=== PATIENT | female | born 2005 | race Caucasian/White ===

== ENCOUNTER 2025-10-19 13:37 | Outpatient (AMB) | payer OTHER, SELFPAY ==
--- OUTSIDE RECORDS SUMMARY | 2024-11-08 14:27 | XMS_ITS | Encounter Summary ---
Author Organization [facility] Address [address] [place] [address] Care Team Providers Care Pearl Maker Name Role Phone Pcp, No Primary Care Provider Unavailabl e Encounter Details Date Type Department Care Team (Latest Contact Info) Description 11/08/2024 2:27 PM EST Hospital Encounter [facility] [address] [place] [address] Acute right ankle pain Social History Tobacco Use Types Packs/Day Years Used Date Smoking Tobacco: Never Assessed Comments Unknown Sex and Gender Information Value Date Recorded Sex Assigned at Not on file Legal Sex Female 6:43 PM EST Gender Identity Not on file Sexual Orientation Not on file documented as of this encounter Plan of Treatment Not on file documented as of this encounter Procedures Procedure Name Priority Date/Time Associated Diagnosis Comments XR ANKLE 3+ VIEWS-RIGHT STAT 11/08/2024 2:32 PM EST Acute right ankle pain documented in this encounter Results * XR Ankle 3+ views-Right (11/08/2024 2:32 PM EST) Anatomical Region Laterality Modality Ankle Right Computed Radiogr aphy 11/08/2024 2:34 PM EST Impressions 11/08/2024 2:36 PM EST No acute osseous injury identified. Narrative 11/08/2024 2:36 PM EST STUDY: XR ANKLE 3+ VIEWS-RIGHT INDICATION: inversion injury 1 week ago. hx of of injury to the same ankle in the past. r/o fx. tenderness medially. COMPARISON: No prior similar studies were available for comparison at this institution. TECHNIQUE: Frontal, lateral, and oblique views were obtained of the right ankle FINDINGS: No displaced fracture or dislocation is seen. No radiopaque foreign body is appreciated. Procedure Note Mindi Corbin MD - 11/08/2024 STUDY: XR ANKLE 3+ VIEWS-RIGHT INDICATION: inversion injury 1 week ago. hx of of injury to the same anklein the past. r/o fx. tenderness medially. [facility]: [facility] TECHNIQUE: Frontal, lateral, and oblique views were obtained of the rightankle FINDINGS: No displaced fracture or dislocation is seen. No radiopaque foreign bodyis appreciated. IMPRESSION: No acute osseous injury identified. Livia Adamson APRN IMG DIAGNOSTIC IMAGING OR DERABLES Final Result documented in this encounter Visit Diagnoses Diagnosis Acute right ankle pain documented in this encounter Care Teams Pearl Maker Relationship Specialty Start Date End Date Pcp, No PCP - General General Medicine 11/08/24 documented as of this encounter
[2025-10-19 13:48] VITALS: BP 108/70; PULSE 83; RESP 16; O2SAT 98; BMI 28.0
--- NOTE | 2025-10-19 13:48 | MHC.OFFVIS ---
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 She was referred to Neurology by her primary care provider for migraines and recent diagnosis of status migrainosus on 08/29/2025 for which she was seen in the emergency department. CT scan in the emergency room according to primary care office note was normal. According to the patient today, she began having severe migraines around the age of 16. She has been seeing pcp for her migraines in the past and was originally treated with rizatriptan as needed. She at that point was having severe but infrequent migraines. About 1 year ago her migraines became more frequent averaging about 2 per week and it began inturriptin her school life. The rizatriptan at that time was not as effective as it once had been and she was then switched to sumatriptan 25mg. She was on the sumatriptan for about 1 year but over the course of the past several months they have become even more freqent now averaging 4-5 migraines per week and more severe. In August she had a migraine for 2 weeks and went to the ER at which time she had her CT scan and revcieved a migraine cocktail which helped with relief that night but in about 48hrs she had return of her migraine. Finally about 1 week ago she started to have some relief. Over the course of the last 3 months she estimates about 16 migraine days per month with some lingering low-level headaches in addition to these days. When she has a migraine her pain is often starting to the occipital areas and ratiates to the temples and frontal areas. Her pain is bilateral and felt as as a throbbing, dull, sharp, and aching pain and can vary from headache to headache. She has nausea, dizziness, light sensitivity, and sound sensitivity with her migraines. She denies any visual auras. She has been on combined OCP since 2020. She is currently on propranolol 20am and 10pm for anxiety and a physiologic tremor. This has not helped her headaches that she is aware of. Headache characteristics: Time of onset:16 years old continuing to worsen Location:Occipital areas and radiates to the temples and frontal areas Positional component:No Character:Throbbing, dull, sharp, and aching pain and can vary from headache to headache Severity:Moderate to severe Duration:Nearly the entire day Frequency:4 days per week on average Acute aggravating factors:Stress and bright lights Acute relieving factors: Rest and relaxation Associated symptoms:Nausea, dizziness, light sensitivity, and sound sensitivity Aura:No Headache triggers:Stress Relation to menses:No Other related background information: Sleep: She reports that she sleeps well with some difficulty at times going to bed or staying asleep but overall normal. 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 No vision trouble Last dental visit: April 2025. She does clench/grind in sleep from time to time History of head injury: Concussion at age 4 with suzanna on scalp but no LOC Family planning considerations: No plans to become Past medication trials: Sumatriptan-no significant benefit Rizatriptan- no significant benefit Propranolol Riboflavin Topiramate (contraindicated with combined OCP) Prior workup: CT head 08/2025 at [facility]: [facility] Medical History (Updated 10/19/25 @ 14:55 by Herlinda Guillen CNP) Hyperprolactinemia HLD (hyperlipidemia) GERD (gastroesophageal reflux disease) Breakthrough bleeding Anxiety ADHD Migraine Review of Systems Const All systems reviewed & are unremarkable except as noted in HPI and below Physical Exam Vital Signs: Last Vital Signs Pulse 83 10/19/25 13:48 Resp 16 10/19/25 13:48 BP 108/70 10/19/25 13:48 Pulse Ox 98 10/19/25 13:48 Oxygen Delivery Method Room Air 10/19/25 13:48 BMI result Body Mass Index 28.0 Const General: cooperative, healthy appearing, comfortable and no acute distress Nutritional Appearance: well nourished Orientation/consciousness: patient oriented x3 Limitations: no limitations HEENT Head: Yes normal to inspection and Yes normocephalic Eyes General: appearance normal, both eyes and all related structures Visual Conway: normal visual conway by confrontation Alignment and Position: alignment normal Periorbital: periorbital findings normal Eyelids: Yes eyelids normal Conjunctivae: conjunctivae normal Sclerae: sclerae normal Direct Ophthalmoscopy: normal light reflex, no papilledema and fundi normal bilaterally Back/Spine/Pelvis Other: Bilateral lower trapezius trigger points Neuro General: patient oriented x3 Cranial nerves: Yes CN's II-XII intact bilaterally and Yes Facial sensation intact/muscles of mastication intact Cognition (Neuro): normal cognition Gait exam (Neuro): Normal gait present Motor exam (neuro): 5/5 motor strength present throughout and no tremor noted Sensory Exam: double simultaneous stimulation for sensation normal Romberg Test: Negative Pupils: Normal pupillary reactivity/response: bilateral Psych Appearance: grossly normal Mental Status: mental status grossly normal Speech and movement: Normal speech and movement present and Clear speech present Affect: normal affect Attitude: cooperative Thought process: Normal thought process present Thought content: Normal thought content present Insight: Good insight present (Psych) Judgement: Good judgement present (Psych) Assessment & Plan Assessment & Plan (1) Chronic migraine without aura without status migrainosus, not intractable: Code(s): G43.709 - Chronic migraine without aura, not intractable, without status migrainosus Category: Medical Plan Ashley is a 19-year-old female patient with a past medical history of ADHD, constipation, anxiety, abnormal menses, hyperlipidemia, hyperprolactinemia, and migraine headaches. Migraines are chronic occurring 16 days per month on average and becoming more severe. She is currently on propranolol for other reasons but not improving her headaches. She is not a good candidate for topiramate given concurrent use of control and she is not a good candidate for tricyclic antidepressants given use of fluoxetine. We discussed other options including anti CGRP agents. She would like to try a once monthly injectable. She does note some constipation and therefore we will avoid Aimovig. She also has a latex allergy and we will avoid Ajovy. I am recommending a trial of Emgality with 240 mg loading dose and 120 mg maintenance dose monthly. For her acute therapy, she has tried to triptan without benefit. I would like her to try Ubrelvy 100 mg as needed for acute therapy. I will see her back in clinic in 3 months or sooner if needed. -start a trial of Emgality 240 mg loading dose and 120 mg maintenance dosing -start a trial of Ubrelvy 100 mg as needed for acute therapy -can continue riboflavin (B2) 400 mg daily as she has been taking -follow up in 3 months or sooner if needed -future considerations include trial off of her combined OCP Coding Level of Care Code New Pt Level 4 (57713) Diagnoses Chronic migraine without aura without status migrainosus, not intractable G43.709
--- OUTSIDE RECORDS SUMMARY | 2025-10-19 16:43 | XMS_ITS | Clinical Summary ---
Author Organization [facility] Address [address] [place] [address] Care Team Providers Care Surgical Services Tech Name Role Phone Pcp, No Primary Care Provider Unavailabl e Allergies Active Allergy Reactions Criticality Noted Date Comments Penicillins Rash/Dermatitis Low 10/27/2014 Medications nortriptyline (PAMELOR) 25 MG capsule Take 25 mg by mouth nightly. Active amphetamine-dext roamphetamine (ADDERALL XR) 15 MG 24 hr capsule Take 15 mg by mouth every morning. Active propranolol (INDERAL) 40 MG tablet Take 40 mg by mouth 3 (three) times a day. Active montelukast (SINGULAIR) 10 MG tablet Take 10 mg by mouth nightly. Active Social History Tobacco Use Types Packs/Day Years Used Date Smoking Tobacco: Never Assessed Comments Unknown Sex and Gender Information Value Date Recorded Sex Assigned at Not on file Legal Sex Female 6:43 PM EST Gender Identity Not on file Sexual Orientation Not on file Last Filed Vital Signs Vital Sign Reading Time Taken Comments Blood Pressure 115/87 11/08/2024 2:07 PM EST Pulse 91 11/08/2024 2:07 PM EST Temperature 36.4 C (97.6 F) 11/08/2024 2:07 PM EST Respiratory Rate - - Oxygen Saturation 100% 11/08/2024 2:07 PM EST Inhaled Oxygen Concentration - - Weight - - Height - - Body Mass Index - - Plan of Treatment Health Maintenance Due Date Last Done Comments Hepatitis C Virus Screening 2004 HIV Screening 2017 HPV Vaccines (1 - 3-dose series) 2019 DTaP/Tdap/Td Vaccines (1 - Tdap) 2023 Hepatitis B Vaccines (1 of 3 - 19+ 3-dose series) 2023 Influenza Vaccine 06/24/2025 COVID-19 Vaccine (2023-2 5 season) 2025 Pneumococcal Vaccine: Pediat hussain (0-5 Years) and At-Risk Patients (6 to 49 Years) Aged Out No longer eligible b ased on patient's age to complete this topic Insurance [facility] Care Teams Surgical Services Tech Relationship Specialty Start Date End Date Pcp, No PCP - General General Medicine 11/08/24
--- OUTSIDE RECORDS SUMMARY | 2025-10-19 16:43 | XMS_ITS | Encounter Summary ---
Author Organization [facility] Address [address] [place] [address] Care Team Providers Care Health Evaluator Name Role Phone Pcp, No Primary Care Provider Unavailabl e Encounter Details Date Type Department Care Team (Late st Contact Info) Description 11/08/2024 Scanned Document [address] [place] [id number] Provider, Generic Social History Tobacco Use Types Packs/Day Years Used Date Smoking Tobacco: Never Assessed Comments Unknown Sex and Gender Information Value Date Recorded Sex Assigned at Not on file Legal Sex Female 6:43 PM EST Gender Identity Not on file Sexual Orientation Not on file documented as of this encounter Plan of Treatment Not on file documented as of this encounter Visit Diagnoses Not on filedocumented in this encounter Care Teams Health Evaluator Relationship Specialty Start Date End Date Pcp, No PCP - General General Medicine 11/08/24 documented as of this encounter
--- OUTSIDE RECORDS SUMMARY | 2025-10-19 16:43 | XMS_ITS | Encounter Summary ---
Author Organization [facility] Address [address] [place] [address] Care Team Providers Care Historic Clothing And Costume Maker Name Role Phone Pcp, No Primary Care Provider Unavailabl e Encounter Details Date Type Department Care Team (Late st Contact Info) Description 11/08/2024 Scanned Document [address] [place] [phone] Provider, Generic Social History Tobacco Use [...] on filedocumented in this encounter Care Teams Historic Clothing And Costume Maker Relationship Specialty Start Date End Date Pcp, No PCP - General General Medicine 11/08/24 documented as of this encounter
--- OUTSIDE RECORDS SUMMARY | 2025-10-19 16:43 | XMS_ITS | Clinical Summary ---
Author Organization [facility] Address [address] [place] [address] Phone Care Team Providers Care Chemical Handler Name Role Phone Jolie Lambert MD Primary Care Provider [phone] Allergies Active Allergy Reactions Criticality Noted Date Comments Latex 08/29/2025 Penicillin 08/29/2025 Medications No known medications Active Problems No known active problems Encounters Date Type Department Care Team Description 08/29/2025 4:11 PM EDT - 08/29/2025 6:35 PM EDT Emergency [facility] Emergency [address] [place] [address] Orlando Ball, Acute nonintractable headache, unspecified headache type (Primary Dx) Discharge Disposition: Home or Self Care from Last 3 Months Medical History Medical History Date Comments Asthma Anxiety Social History Tobacco Use Types Packs/Day Years Used Date Smoking Tobacco: Never Assessed Comments Unknown Sex and Gender Information Value Date Recorded Sex Assigned at Female 08/29/2025 4:07 PM EDT Legal Sex Female 8:20 PM EST Gender Identity Female 08/29/2025 4:07 PM EDT Sexual Orientation Choose not to disclose 2024 4:07 PM EDT Obstetrics History Last Filed Vital Signs Vital Sign Reading Time Taken Comments Blood Pressure 108/82 08/29/2025 4:09 PM EDT Pulse 70 08/29/2025 4:09 PM EDT Temperature 36.8 C (98.2 F) 08/29/2025 4:09 PM EDT Respiratory Rate 17 08/29/2025 4:09 PM EDT Oxygen Saturation 98% 08/29/2025 4:09 PM EDT Inhaled Oxygen Concentration - - Weight 73.9 kg (163 lb) 08/29/2025 4:08 PM EDT Height 165.1 cm (5' 5 ) 08/29/2025 4:08 PM EDT Body Mass Index 27.12 08/29/2025 4:08 PM EDT Plan of Treatment Health Maintenance Due Date Last Done Comments Gonorrhea/Chlamydia Screening 2004 Meningococcal B Vaccine (1 of 2 - Standard) 2020 Pneumococcal Vaccine: Pediatrics (0 to 5 Years) and At-Risk Patients (6 to 49 Years) (1 of 2 - PCV) 2023 10/31/2006 Annual Well Child Visit (3-21 years old) 12/18/2023 Cholesterol Screening (Lipid Panel) 12/18/2023 HIV Screening 12/18/2023 Hepatitis C Screening 12/18/2023 Social Influencers of Health Screening 12/18/2023 Depression Screening 11/24/2024 COVID-19 Vaccine ( - season) 2025 11/12/2021, 03/23/2021, 03/02/2021 Influenza Vaccine (#1) 2025 , 07/26/2023, 10/03/2022, Additional history exists DTaP,Tdap,and Td Vaccines (7 - Td or Tdap) 03/14/2026 03/14/2016, 04/13/2010, 01/27/2008, Additional history exists RSV Immunization Adult Patients (1 - 1-dose 75+ series) 2079 Hepatitis B Vaccines Completed 09/02/2005, 06/07/2005, 04/05/2005, Additional history exists HIB Vaccines Completed 02/05/2006, 05/24, 04/05/2005, Additional history exists IPV Vaccines Completed 04/13/2010, 05/24, 04/05/2005, Additional history exists MMR Vaccines Completed 04/13/2010, 02/05/2006 Varicella Vaccines Completed 04/13/2010, 02/05/2006 Hepatitis A Vaccines Completed 08/11/2014, 05/14/20 13 HPV Vaccines Completed 09/11/2018, 09/04/2017 Meningococcal ACWY Vaccine Completed 04/20/2021, RSV Immunization Patients Under 20 months Aged Out No longer eligible based on patient's age to complete this topic Procedures Procedure Name Priority Date/Time Associated Diagnosis Comments CT HEAD WO CONTRAST STAT 08/29/2025 5 :24 PM EDT MAGNESIUM STAT 08/29/2025 4:20 PM EDT CBC WITH AUTO DIFFERENTIAL STAT 08/29/2025 4:20 PM EDT HCG, SERUM, QUALITATIVE STAT 08/29/2025 4:20 PM EDT COMPREHENSIVE METABOLIC PANEL STAT 08/29/2025 4:20 PM EDT CBC AND DIFFERENTIAL STAT 08/29/2025 4:20 PM EDT from Last 3 Months Results * CT Head wo Contrast (08/29/2025 5:24 PM EDT) Anatomical Region Laterality Modality Head and Neck Computed Tomogra phy 08/29/2025 5:52 PM EDT Impressions 08/29/2025 6:03 PM EDT 1. No evidence of acute intracranial abnormality. -------- FINAL REPORT -------- Dictated By: Orlando South Dictated Date: 08/29/2025 17:52 ET Assigned Physician: Orlando South Reviewed and Electronically Signed By: Orlando South Signed Date: 08/29/2025 18:03 ET Workstation ID: [id number] Transcribed By: Self Edit Transcribed Date: 08/29/2025 17:52 ET Narrative 08/29/2025 6:03 PM EDT EXAMINATION: CT HEAD WITHOUT CONTRAST CLINICAL INDICATION: Headache COMPARISON: None. TECHNIQUE: Helical imaging of CT head was performed without IV contrast. Radiation dose reduction was achieved using ALARA (as low as reasonably achievable) principals including automatic exposure control, adjusting the mA and/or KV setting according to patient?s size and weight, the use of iterative reconstruction techniques as well as performing sagittal and coronal reconstruction images when applicable. FINDINGS: BRAIN PARENCHYMA & EXTRA-AXIAL SPACES: No evidence for acute hemorrhage. Negative for large territory infarct. No acute extra-axial fluid collection identified. There is no midline shift. Basal cisterns are patent. VENTRICLES: No evidence of hydrocephalus. SCALP SOFT TISSUES: No significant abnormality. CALVARIUM: No acute process. VISUALIZED PARANASAL SINUSES: No air-fluid levels. MASTOID AIR CELLS: Grossly clear. Procedure Note Orlando South MD - 08/29/2025 EXAMINATION: CT HEAD WITHOUT CONTRAST CLINICAL INDICATION: Headache COMPARISON: None. TECHNIQUE: Helical imaging of CT head was performed without IV contrast. Radiation dose reduction was achieved using ALARA (as low as reasonablyachievable) principals including automatic exposure control, adjusting themA and/or KV setting according to patient?s size and weight, the use ofiterative reconstruction techniques as well as performing sagittal andcoronal reconstruction images when applicable. FINDINGS: BRAIN PARENCHYMA & EXTRA-AXIAL SPACES: No evidence for acute hemorrhage. Negative for large territory infarct. No acute extra-axial fluid collection identified. There is no midline shift. Basal cisterns are patent. VENTRICLES: No evidence of hydrocephalus. SCALP SOFT TISSUES: No significant abnormality. CALVARIUM: No acute process. VISUALIZED PARANASAL SINUSES: No air-fluid levels. MASTOID AIR CELLS: Grossly clear. IMPRESSION: 1. No evidence of acute intracranial abnormality. -------- FINAL REPORT -------- Dictated By: Orlando South Dictated Date: 08/29/2025 17:52 ET Assigned Physician: Orlando South Reviewed and Electronically Signed By: Orlando South Signed Date: 08/29/2025 18:03 ET Workstation ID: [id number] Transcribed By: Self Edit Transcribed Date: 08/29/2025 17:52 ET Orlando Ball DO IMG CT PROCEDURES Final Resul t * (ABNORMAL) CBC auto differential (08/29/2025 4:20 PM EDT) WBC 13.1(H) 4.0 - 10.5 K/[facility] RBC 4.49 4.20 - 5.40 M/mcL LAB HEMETOLOGY METHOD [facility]/29[facility]2025 [facility] Hemoglobin 12.6 12.5 - 16.0 g/dL LAB HEMETOLOGY METHOD 08/29[facility]2025 4[facility] Hematocrit 37.3 37.0 - 47.0 % LAB HEMETOLOGY METHOD 08/29/2025 4:[facility] MCV 83.1 78.0 - 100.0 FL LAB HEMETOLOGY METHOD 08/29/2025 4:24 PM [facility] MCH 28.1 25.0 - 33.0 pcg LAB HEMETOLOGY METHOD 08/29[facility]2025 4[facility] MCHC 33.8 32.0 - 36.0 g/dL LAB HEMETOLOGY METHOD 08/29/2025 4:24 PM [facility] RDW 13.0 12.1 - 16.2 % LAB HEMETOLOGY METHOD 08/29/2025 4:24 PM [facility] Platelets 353 150 - 450 K/mcL LAB HEMETOLOGY METHOD 08/29/2025 4:24 PM [facility] MPV 9.8 7.4 - 11.4 FL LAB HEMETOLOGY METHOD 08/29/2025 4:24 PM [facility] Neutrophils Relative 63.2 44.0 - 74.0 % LAB HEMETOLOGY METHOD 08/29/2025 4:24 PM [facility] Lymphocytes Relative 25.1 20.0 - 48.0 % LAB HEMETOLOGY METHOD 08/29/2025 4:24 PM [facility] Monocytes Relative 7.2 2.0 - 12.0 % LAB HEMETOLOGY METHOD 08/29/2025 4:24 PM EDT [facility] Eosinophils Relative 3.4 0.0 - 6.0 % LAB HEMETOLOGY METHOD 08/29/2025 4:24 PM EDT [facility] Basophils Relative 0.8 0.0 - 2.0 % LAB HEMETOLOGY METHOD 08/29/2025 4:24 PM EDT [facility] Neutrophils Absolute 8.30(H) 1.80 - 7.80 K/mcL LAB HEMETOLOGY METHOD 08/29/2025 4:24 PM EDT [facility] Lymphocytes Absolute 3.29(H) 1.00 - 3.20 K/mcL LAB HEMETOLOGY METHOD 08/29/2025 4:24 PM EDT [facility] Monocytes Absolute 0.95(H) 0.00 - 0.80 K/mcL LAB HEMETOLOGY METHOD 08/29/2025 4:24 PM EDT [facility] Eosinophils Absolute 0.44 0.00 - 0.50 K/mcL LAB HEMETOLOGY METHOD 08/29/2025 4:24 PM EDT [facility] Basophils Absolute 0.10 0.00 - 0.20 K/mcL LAB HEMETOLOGY METHOD 08/29/2025 4:24 PM EDT [facility] Blood Venous blood specimen / Unknown Venipuncture / Unknown 08/29/2025 4:20 PM EDT 08/29/2025 4:22 PM EDT Thania Cabrera NP LAB BLOOD ORDERABLES Final Result [facility] [place] Reg. #:[id number] [address] [place] [address], * hCG, serum, qualitative (08/29/2025 4:20 PM EDT) Pathologist [facility] hCG Qual Negative Negative 08/29/2025 4:35 PM EDT [facility] Blood Venous blood specimen / Unknown Venipuncture / Unknown 08/29/2025 4:20 PM EDT 08/29/2025 4:22 PM EDT Thania Cabrera MANAGER [employer] LAB BLOOD ORDERABLES Final Result Performing Organization Address City/[facility]/ZIP Co de Phone Number [facility] Reg. #:[id number] [address] [place] [address], * Magnesium (08/29/2025 4:20 PM EDT) [facility] Magnesium 1.8 1.7 - 2.8 mg/dL LAB CHEMISTRY METHOD 08/29/2025 4:42 PM EDT [facility] Blood Venous blood specimen / Unknown Venipuncture / Unknown 08/29/2025 4:20 PM EDT 08/29/2025 4:22 PM EDT Thania Cabrera MANAGER [employer] LAB BLOOD ORDERABLES Final Result [facility] Reg. #:[id number] [address] [place] [address], [place] [phone] * Comprehensive metabolic panel (08/29/2025 4:20 PM EDT) [facility] Sodium 139 135 - 145 mmol/L LAB CHEMISTRY METHOD 08/29/2025 4:42 PM EDT [facility] Potassium 4.0 3.5 - 5.1 mmol/L LAB CHEMISTRY METHOD 08/29/2025 4:42 PM [facility] Chloride 106 98 - 107 mmol/L LAB CHEMISTRY METHOD 08/29/2025 4:42 PM [facility] CO2 26 24 - 32 mmol/L LAB CHEMISTRY METHOD 08/29/2025 4:42 PM [facility] Anion Gap 7 5 - 14 LAB CHEMISTRY METHOD 08/29/2025 4:42 PM [facility] Glucose 88 70 - 199 mg/dL LAB CHEMISTRY METHOD 08/29/2025 4:42 PM [facility] BUN 14 7 - 17 mg/dL LAB CHEMISTRY METHOD 08/29/2025 4:42 PM [facility] Creatinine 0.73 0.50 - 1.00 mg/dL LAB CHEMISTRY METHOD 08/29/2025 4:42 PM [facility] eGFR 121 >=60 mL/min/1. 73m2 LAB CHEMISTRY METHOD 08/29/2025 4:42 PM [facility] Comment:Calculation based on the Chronic Kidney Disease Epidemiology Collaboration (CKD-EPI) equation refit without adjustment for race. BUN/Creatinine Ratio 19.2 12.0 - 20.0 LAB CHEMISTRY METHOD 08/29/2025 4:42 PM [facility] Calcium 9.0 8.4 - 10.2 mg/dL LAB CHEMISTRY METHOD 08/29/2025 4:42 PM [facility] AST (SGOT) 14 5 - 40 unit/L LAB CHEMISTRY METHOD 08/29/2025 4:42 PM [facility] ALT (SGPT) 13 7 - 52 unit/L LAB CHEMISTRY METHOD 08/29/2025 4:42 PM [facility] Alkaline Phosphatase 66 34 - 104 unit/L LAB CHEMISTRY METHOD 08/29/2025 4:42 PM [facility] Total Protein 6.4 6.4 - 8.5 g/dL LAB CHEMISTRY METHOD 08/29/2025 4:42 PM EDT [facility] Albumin 4.4 3.5 - 5.0 g/dL LAB CHEMISTRY METHOD 08/29/2025 4:42 PM EDT [facility] Total Bilirubin 0.3 0.3 - 1.0 mg/dL LAB CHEMISTRY METHOD 08/29/2025 4:42 PM EDT [facility] Blood Venous blood specimen / Unknown Venipuncture / Unknown 08/29/2025 4:20 PM EDT 08/29/2025 4:22 PM EDT Thania Cabrera MANAGER [employer] LAB BLOOD ORDERABLES Final Result [facility] [place] Reg. #:[id number] [address] [place] [address], [place] [phone] from Last 3 Months Insurance [facility] Care Teams Chemical Handler Relationship Specialty Start Date End Date Jolie Lambert MD [address] [place] [id number] PCP - General 10/31/22
--- OUTSIDE RECORDS SUMMARY | 2025-10-19 16:43 | XMS_ITS ---
Author Name [facility] Organization Unknown Results Test Name/Text Value Interpretation Date Range Source Magnesium SerPl-mCnc 1.8 mg/dL 08/29/2025 1.7 - 2.8 [facility] Creat SerPl-mCnc 0.73 mg/dL 08/29/2025 0.5 - 1 C [facility] Chloride SerPl-sCnc 106.0 mmol/L 08/29/2025 98 - 1 07 [facility] Bilirub SerPl-mCnc 0.3 mg/dL 08/29/2025 0.3 - 1 [facility] BUN SerPl-mCnc 14.0 mg/dL 08/29/2025 7 - 17 [facility] ALP SerPl-cCnc 66.0 unit/L 08/29/2025 34 - 104 [facility] Albumin SerPl-mCnc 4.4 g/dL 08/29/2025 3.5 - 5 [facility] CO2 SerPl-sCnc 26.0 mmol/L 08/29/2025 24 - 32 [facility] Potassium SerPl-sCnc 4.0 mmol/L 08/29/2025 3.5 - 5.1 [facility] ALT SerPl-cCnc 13.0 unit/L 08/29/2025 7 - 52 [facility] Sodium SerPl-sCnc 139.0 mmol/L 08/29/2025 135 - 14 5 [facility] AST SerPl-cCnc 14.0 unit/L 08/29/2025 5 - 40 [facility] eGFRcr SerPlBld CKD-EPI 2020 121.0 mL/min/1.73m2 08/29/2025 - [facility] Calcium SerPl-mCnc 9.0 mg/dL 08/29/2025 8.4 - 10.2 [facility] Glucose SerPl-mCnc 88.0 mg/dL 08/29/2025 70 - 199 [facility] Anion Gap SerPl Calc-sCnc 7.0 08/29/2025 5 - 14 [facility] BUN/Creat SerPl 19.2 08/29/2025 12 - 20 [facility] Prot SerPl-mCnc 6.4 g/dL 08/29/2025 6.4 - 8.5 [facility] HCG SerPl Ql Negative 08/29/2025 - [facility] Monocytes NFr Bld Auto 7.2 % 08/29/2025 2 - 12 [facility] MCH RBC Qn Auto 28.1 pcg 08/29/2025 25 - 33 [facility] PMV Bld Auto 9.8 FL 08/29/2025 7.4 - 11.4 [facility] MCV RBC Auto 83.1 FL 08/29/2025 78 - 100 [facility] Platelet # Bld Auto 353.0 K/mcL 08/29/2025 150 - 4 50 [facility] Basophils NFr Bld Auto 0.8 % 08/29/2025 0 - 2 [facility] Neutrophils # Bld Auto 8.3 K/mcL Above high normal 08/29/2025 1.8 - 7.8 [facility] Hgb Bld-mCnc 12.6 g/dL 08/29/2025 12.5 - 16 [facility] Lymphocytes # Bld Auto 3.29 K/mcL Above high normal 08/29/2025 1 - 3.2 [facility] Neutrophils NFr Bld Auto 63.2 % 08/29/2025 44 - 74 [facility] MCHC RBC Auto-EntMCnc 33.8 g/dL 08/29/2025 32 - 36 [facility] Lymphocytes NFr Bld Auto 25.1 % 08/29/2025 20 - 48 [facility] Eosinophil NFr Bld Auto 3.4 % 08/29/2025 0 - 6 [facility] Monocytes # Bld Auto 0.95 K/mcL Above high normal 08/29/2025 0 - 0.8 [facility] Erythrocyte DistWidth Bld Auto 13.0 % 08/29/2025 12.1 - 16.2 [facility] WBC # Bld Auto 13.1 K/mcL Above high normal 08/29/2025 4 - [address]5 [facility] Hct VFr Bld Auto 37.3 % 08/29/2025 37 - 47 [facility] Eosinophil # Bld Auto 0.44 K/mcL 08/29/2025 0 - 0.5 [facility] RBC # Bld Auto 4.49 M/mcL 08/29/2025 4.2 - 5.4 [facility] Basophils # Bld Auto 0.1 K/mcL 08/29/2025 0 - 0.2 [facility] History of Medication Use Medication Directions Dispensed Refills Start Date End Date Stat HYDROmorphone (DILAUDID) injection 0.5 mg 0.5 mg, intravenous, Once, On 08/29/25 at 1623, For 1 dose 08/29/2025 5 completed metoclopramide (REGLAN) injection 10 mg 10 mg, intravenous, Once, On 08/29/25 at 1623, For 1 dose, Doses LESS than or equal to 10 mg can be given IV push undiluted over 1 minute 08/29/2025 5 completed sodium chloride 0.9 % bolus 1,000 mL 1,000 mL, intravenous, at 1,000 mL/hr, Administer over 1 Hours, Once, On 08/29/25 at 1623, For 1 dose 08/29/2025 5 completed amphetamine-dextroam phetamine (ADDERALL XR) 15 MG 24 hr capsule Take 15 mg by mouth every morning. active montelukast (SINGULAIR) 10 MG tablet Take 10 mg by mouth nightly. active No known medications No known medications active nortriptyline (PAMELOR) 25 MG capsule Take 25 mg by mouth nightly. active propranolol (INDERAL) 40 MG tablet Take 40 mg by mouth 3 (three) times a day. active Allergies Allergen Reaction Severity Comment Documented Date Source Statu s LATEX 08/29/2025 [facility] active PENICILLIN 08/29/2025 [facility] active PENICILLINS RASH/DERMATITIS 10/27/2014 [facility] a ctive Problems Problem Status Onset Date Problem Type Date of Resolution Source Acute nonintractable headache, unspecified headache type active EncounterDiagnosisAct [facility] Acute right ankle pain active EncounterDiagnosisAct [facility] Sprain of right ankle, unspecified ligament, initial encounter active EncounterDiagnosisAct [facility] Encounters Encounter Type Encounter Reason Primary Diagnosis Location Date Emergency migraine Headache, unspecified [facility] 08/29/2025 Ambulatory Pain in right ankle and joints of right foot Pain in right ankle and joints of right foot [facility] 11/08/2024 Ambulatory Ankle Pain Ankle Pain [facility] [place] 11/08/2024 Care Team Organization Name Specialty Phone Email Start Date End [facility] te [facility] 08/30/2025 [facility] 08/29/2025 [facility] 11/12/2024 02/09/2025 [facility] NO PCP Primary Care 11/10/2024 [facility] 11/08/2024
--- OUTSIDE RECORDS SUMMARY | 2025-10-19 16:43 | XMS_ITS | Clinical Summary ---
Author Organization [facility] Address [address] [place] [address] Care Team Providers Care Wood Cut Engraver Name Role Phone Jolie Lambert MD Primary Care Provider [phone] Allergies Active Allergy Reactions Criticality Noted Date Comments Latex 10/27/2014 Other reaction(s): gets red Penicillins 10/27/2014 Medications Medication Sig Dispensed Refills Start Date End Date Status albuterol 108 (90 Base) MCG/ACT inhaler 2 puffs every 4 (four) hours as needed. 0 09/13/2022 Active amphetamine-dextroamp hetamine (ADDERALL XR) 15 MG 24 hr capsule Take 1 capsule (15 mg total) by mouth daily. 0 10/14/2022 Active busPIRone (BUSPAR) 7.5 MG tablet Take 1 tablet (7.5 mg total) by mouth daily. 0 10/14/2022 Active meloxicam (MOBIC) 15 MG tablet Take 1 tablet (15 mg total) by mouth daily. 0 09/12/2022 Active montelukast (SINGULAIR) 10 MG tablet Take 1 tablet (10 mg total) by mouth every night at bedtime. 0 09/12/2022 Active Junel 1.5/30 1.5-30 MG-MCG TABS Take 1 tablet by mouth daily. 0 08/24/2022 Active EPINEPHrine 0.3 MG/0.3ML SOAJ 0 08/15/2014 Active escitalopram (LEXAPRO) 20 MG tablet Take 0.5 tablets (10 mg total) by mouth daily. 0 Active fluticasone (FLOVENT HFA) 44 MCG/ACT inhaler 0 08/09/2014 Active traZODone (DESYREL) 50 MG tablet 0 09/24/2014 Active LORazepam (ATIVAN) 1 MG tablet 0 08/15/2014 Active etodolac (Lodine) 400 MG tablet Take 1 tablet (400 mg total) by mouth 2 (two) times a day. 60 tablet 0 11/07/2022 Active Social History Tobacco Use Types Packs/Day Years Used Date Smoking Tobacco: Never Assessed Sex and Gender Information Value Date Recorded Sex Assigned at Not on file Gender Identity Not on file Sexual Orientation Not on file Job Start Date Occupation Industry Not on file Not on file Not on file Plan of Treatment Health Maintenance Due Date Last Done Comments Hepatitis B Vaccines (1 of 3 - 3-dose series) 2004 Hepatitis C Screening 2004 COVID-19 Vaccine (#1) 06/02/2005 Depression Screening 2016 Gonorrhea and Chlamydia Screening 2017 Preventative Health Evaluation 2022 DTap / Tdap / Td (1 - Tdap) 2023 Influenza Vaccine (#1) 2025 Pneumococcal Vaccine Aged Out No long er eligible based on patient's age to complete this topic RSV Ped < 20 months Aged Out No longe r eligible based on patient's age to complete this topic Care Teams Wood Cut Engraver Relationship Specialty Start Date End Date Jolie Lambert MD [address] [place] [address] PCP - General Pediatrics 10/31/22
--- OUTSIDE RECORDS SUMMARY | 2025-10-19 16:43 | XMS_ITS | Clinical Summary ---
Author Organization [facility] Address [address] [place] [address] Care Team Providers Care Garland Maker Name Role Phone Jolie Lambert MD Primary Care Provider [phone] Source Comments Please note that some or all of the patient's information could have additional privacy protections. State laws allow health care providers to render certain types of treatment to minors without parental consent. Please do not assume that this information can be shared solely by obtaining just the consent of the patient's parent/guardian. Please determine if all or part of the patient's care was rendered without parent/guardian involvement. And, if so, obtain the minor's consent prior to disclosure.[facility] Allergies Active Allergy Reactions Criticality Noted Date Comments Latex 10/27/2014 Penicillins 10/27/2014 Medications PROAIR HFA 90 mcg/actuation inhaler 08/11/2014 Active EPIPEN 2-GIOVANY 0.3 mg/0.3 mL (1:1,000) injection 08/15/2014 Active FLOVENT HFA 44 mcg/actuation inhaler 08/09/2014 Active LORazepam (ATIVAN) 1 MG tablet 08/15/2014 Active traZODone (DESYREL) 50 MG tablet 09/24/2014 Active escitalopram oxalate (LEXAPRO) 20 MG tablet Take 5 mg by mouth daily Active Active Problems Problem Noted Date Diagnosed Date Pain in joint involving ankle and foot 4 Social History Tobacco Use Types Packs/Day Years Used Date Smoking Tobacco: Never Alcohol Use Standard Drinks/Week Comments Not Asked 0 (1 standard drink = 0.6 oz pur e alcohol) Comments Unknown Sex and Gender Information Value Date Recorded Sex Assigned at Not on file Legal Sex Female 2:29 AM EST Gender Identity Not on file Sexual Orientation Not on file Last Filed Vital Signs Vital Sign Reading Time Taken Comments Blood Pressure 112/72 10/27/2014 4:12 PM EST Pulse 100 10/27/2014 4:12 PM EST Temperature - - Respiratory Rate - - Oxygen Saturation - - Inhaled Oxygen Concentration - - Weight 34 kg (75 lb) 11/05/2014 7:42 AM EST Height 134 cm (4' 4.76 ) 10/27/2014 4:12 PM EST Body Mass Index - - Plan of Treatment Health Maintenance Due Date Last Done Comments DTaP/TDAP/TD VACCINES (1 - Tdap) 2011 ADOLESCENT HIV SCREENING 2017 COVID-19 Vaccine ( - 2023-2 5 season) 2025 INFLUENZA (#1) 2025 NIRSEVIMAB VACCINES UNDER 8 MONTHS Aged Out No longer eligible based on patient's age to complete this topic Insurance DEACTIVATED 09/24/18 ![employer] Care Teams Garland Maker Relationship Specialty Start Date End Date Jolie Lambert MD [address] [place] [address] PCP - General 11/26/12
== END 2025-10-19 14:37 | disposition home or self-care (01) ==
LOC: HO.HSM 13:37
PROVIDERS: PCP Physician Assistant; Visit Provider Nurse Practitioner
DX: G43.709 Chronic migraine without aura, not intractable, without status migrainosus (principal)
CPT/HCPCS: 99204